=== PATIENT | female | born 1950 | race Caucasian/White ===

== ENCOUNTER 2018-03-28 18:44 | Emergency (ER) | payer OTHER, BC ==
[2018-03-28 19:28] LABS: PLATELET COUNT 288 10^3/uL (150-400)
--- NOTE | 2018-03-28 19:51 | EDPHY ---
H & P Stated Complaint: cp Time Seen by Provider: 03/28/18 19:08 HPI/ROS: CHIEF COMPLAINT: Chest pain HISTORY OF PRESENT ILLNESS: 67-year-old female presents with chest pain. She awoke at 0230 this morning and noticed pain in the right anterior chest. The pain was "not really a pain, just a sensation". She turned over and had a sudden onset of sharp and stabbing pain. She turned back to her other side at the stabbing pain resolved. She was worried about the sensation and stayed up for a short of about of time, but eventually got back to sleep. When she awoke this morning, she did not have the pain or sensation in her chest. She went to urgent care for evaluation and EKG was reportedly normal. However her blood pressure was elevated in urgent care. She called her primary care physician, who is [place] of [place]. Her primary care physician prescribed metoprolol 25 mg daily. The patient took the 1st dose of metoprolol at 4:00 p.m.. This afternoon, she developed a discomfort all of the left side of her breast, also not really a pain, just abnormal sensation. She has been worried about a possible breast lump in this area, because 2 of her sisters have had breast cancer. She is in [place] because 1 of her sisters is dying from pancreatic cancer. Cardiac risk factors negative. Nonsmoker; no family history; no hypertension, diabetes or hypercholesterolemia. REVIEW OF SYSTEMS: complete 10 point ROS reviewed and is negative except for the noted elements in the HPI - Personal History Current Tetanus/Diphtheria Vaccine: Yes Current Tetanus Diphtheria and Acellular Pertussis (TDAP): Yes - Medical/Surgical History Hx Asthma: No Hx Chronic Respiratory Disease: No Hx Diabetes: No Hx Cardiac Disease: No Hx Renal Disease: No Hx Cirrhosis: No Hx Alcoholism: No Hx HIV/AIDS: No Hx Splenectomy or Spleen Trauma: No - Social History Smoking Status: Never smoked Alcohol Use: Sober Drug Use: None - Physical Exam Exam: General Appearance: Alert, pleasant Eyes: Pupils equal and round, no conjunctival pallor or injection ENT, Mouth: Mucous membranes moist Neck: Normal inspection Respiratory: Lungs are clear to auscultation Breast: Left breast examined-no lump palpable Cardiovascular: Regular rate and rhythm Gastrointestinal: Abdomen is soft and nontender Neurological: A&O, nonfocal, normal gait Skin: Warm and dry, no rash Extremities: Nontender, no pedal edema Psychiatric: Mood and affect normal Constitutional: Initial Vital Signs Temperature (C) 37 C 03/28/18 18:59 Heart Rate 76 03/28/18 18:59 Respiratory Rate 16 03/28/18 18:59 Blood Pressure 204/104 H 03/28/18 18:59 O2 Sat (%) 97 03/28/18 18:59 O2 Delivery Mode Room Air Allergies/Adverse Reactions: No Known Allergies Allergy (Unverified 03/28/18 18:58) Home Medications: Medication Instructions Recorded Metoprolol Tartrate 03/28/18 Medical Decision Making - Diagnostics EKG Interpretation: EKG interpreted by me reveals normal sinus rhythm, rate 81, no ST or T segment changes. Interpretation: Normal EKG. Imaging Results: CXR: NAD Imaging: I viewed and interpreted images myself ED Course/Re-evaluation: This patient presents with atypical chest pain. stat EKG reveals no ischemic changes and initial troponin is normal. CXR unremarkable. Results d/w pt. Significant assoc anxiety, Ativan 0.5mg IV given. After careful consideration and evaluation, I find no evidence of acute coronary syndrome. The patient has no risk factors for coronary disease, normal EKG and normal studies. Heart score is 1 for age. I do not feel that additional ED testing is indicated. In addition, I feel that I can safely exclude pulmonary embolism, with normal vital signs, normal oxygen saturation and normal studies. PERC score 1; normal physical exam, no prior thromboembolism, no recent surgery, no estrogen use. In addition there is no evidence of pneumothorax, pneumonia, aortic dissection. BP also quite elevated on arrival, repeat BP improved. Newly dx'd with HTN, just started metoprolol today. Multiple contributing factors to elevated cp today, including multiple serious stressors. Pt will take and record BP twice daily. d/w PCP if elevated BP persists. Differential Diagnosis: Differential diagnosis includes though it is not limited to pneumonia, pneumothorax, pulmonary embolism, aortic dissection, pericarditis, acute coronary syndrome. - Data Points Laboratory Results: Laboratory Results 03/28/18 19:14 03/28/18 19:14 Medications Given: Discontinued Medications Lorazepam (Ativan Injection) 0.5 mg IVP EDNOW ONE Stop: 03/28/18 20:49 Last Admin: 03/28/18 21:06 Dose: 0.5 mg Point of Care Test Results: Chemistry 03/28/18 19:18 POC Troponin I 0.00 ng/mL ng/mL (0.00-0.08) Departure - Departure Disposition: Home, Routine, Self-Care Clinical Impression: Chest pain Qualifiers: Chest pain type: other chest pain Qualified Code(s): R07.89 - Other chest pain ; R07.8 - Other chest pain Condition: Good Instructions: Chest Pain (ED) Additional Instructions: Return for worsening symptoms or any concerns. Referrals: TIANNA FLEMING [Other] - As per Instructions
[2018-03-28] MEDS ORDERED: LORazepam 2 MG/ML INJ IVP ONE (20:48)
[2018-03-28 21:46] VITALS: BP 138/93
--- NOTE | 2018-03-28 22:38 | CPEKG ---
Test Reason : OPEN Blood Pressure : / mmHG Vent. Rate : 081 BPM Atrial Rate : 082 BPM P-R Int : 159 ms QRS Dur : 084 ms QT Int : 391 ms P-R-T Axes : 059 056 038 degrees QTc Int : 454 ms Sinus rhythm Probable left atrial enlargement Confirmed by Kobe Minor ([id number]) on 03/28/2018 10:38:32 PM Referred By: Confirmed By:Kobe Minor
== END 2018-03-28 21:45 | disposition home or self-care (01) ==
DX: R07.89 Other chest pain (principal); I10 Essential (primary) hypertension
CPT/HCPCS: 71046; 93005; 96374; 99285; J2060; 84484-ER